=== PATIENT | female | born 1960 | race Caucasian/White ===

== ENCOUNTER → 2021-07-27 | Outpatient (CLI) | payer BC ==
[~2021-07-27] MED LIST: BAMLANIVIMAB (EUA) 700 MG, ETESEVIMAB (EUA) 1,400 MG in SODIUM CHLORIDE 0.9% 50 ML IVPB ONE; SODIUM CHLORIDE 0.9% 50 ML IVPB ONE; SODIUM CHLORIDE 0.9% 500 ML 500 ML in EMPTY BAG 1 BAG IV PRN
[2021-07-27 13:49] VITALS: RESP 16
[2021-07-27 14:37] VITALS: BP 135/68; PULSE 74; TEMP 98.4
== END | disposition home or self-care (01) ==
LOC: PROCWHC3 12:46
PROVIDERS: ATTEND Family Medicine
DX: U07.1 COVID-19 (principal)
CPT/HCPCS: 96360; J3490; M0245

== ENCOUNTER 2022-04-24 12:20 | Emergency (ER) | payer BC, OTHER ==
[2022-04-24 15:04] VITALS: BP 144/87; PULSE 69; RESP 17
--- NOTE | 2022-04-24 15:05 | XR ---
EXAMINATION TYPE: XR shoulder complete LT DATE OF EXAM: 04/24/2022 COMPARISON: NONE HISTORY: Pain TECHNIQUE: 3 views FINDINGS: The glenohumeral joint is intact. I see no fracture nor dislocation. No significant patholo gic calcification. IMPRESSION: Negative left shoulder exam
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
[2022-04-24 15:33] VITALS: TEMP 98
== END 2022-04-24 15:39 | disposition home or self-care (01) ==
LOC: EC 12:20
DX: S43.402A Unspecified sprain of left shoulder joint, initial encounter (principal); S40.012A Contusion of left shoulder, initial encounter; I10 Essential (primary) hypertension; V29.9XXA Motorcycle rider (driver) (passenger) injured in unspecified traffic accident, initial encounter; Y92.410 Unspecified street and highway as the place of occurrence of the external cause
CPT/HCPCS: 99284